=== PATIENT | female | born 1925 | race Caucasian/White ===

== ENCOUNTER → 2016-12-05 | Outpatient (CLI) | payer BC ==
[~2016-12-05] MED LIST: ACET-1311 PO; AMLO-110 PO; BENZ10LO2 PO; CALC500C3 PO; CALC500C70 PO; CARV12.52 PO; CHOL100010 PO; CLOP1TAB15 PO; DOCU100C PO; FLUT0.15 NAE; GLIP5TAB11 PO; HYDCR1CL TOP; LEVE500T13 PO; LOPE2TAB PO; MAGNSUS5 PO; MULT60CA PO; NYSCR30 EXT; PANT40TA PO; POLY1POW2 PO; POLYSOL4 OP; SENN-104 PO; [UNRECOGNIZED DRUG - CODE] PO
--- NOTE | 2016-12-08 12:20 | CODING QUERY NO DIAGNOSIS ---
: 1925 TREATMENT RENDERED WITHOUT A DIAGNOSIS To promote full compliance with coding requirements relating to patient care, physician participation is requested in all cases of accounts receivable accountant uncertainty. Please assist us with providing a diagnosis/symptom for the test(s) below: A diagnosis/symptom was not documented on your Order. A valid diagnosis/symptom is required to bill all insurances. Please remember that we are unable to code a diagnosis of rule out, probable, possible, questionable, or suspected. Tests that require a diagnosis: DOS: 12/05/16 * Influenza Virus A or B Antigen DIAGNOSIS: Provider Signature: Date: Thank you [facility] Once completed, please kindly fax back to [phone] For questions please call [phone]
== END | disposition home or self-care (01) ==
LOC: C.LABSPEC 16:41
PROVIDERS: ATTEND Internal Medicine
DX: J09.X2 Influenza due to identified novel influenza A virus with other respiratory manifestations (principal)

== ENCOUNTER → 2017-04-22 | Outpatient (CLI) | payer BC ==
[2017-04-22 10:25] LABS: BLOOD UREA NITROGEN 29 mg/dl (7-18); GLUCOSE 234 mg/dl (70-99)
[2017-04-22 10:26] LABS: BUN/CREATININE RATIO 19.2 (10-20); CALCIUM 8.3 mg/dl (8.5-10.1); CARBON DIOXIDE 27 mmol/L (21-32); CHLORIDE 108 mmol/L (98-107); POTASSIUM 4.2 mmol/L (3.5-5.1); SODIUM 143 mmol/L (136-145)
--- NOTE | 2017-06-12 07:01 | CODING QUERY NO DIAGNOSIS ---
: 1925 TREATMENT RENDERED WITHOUT A DIAGNOSIS To promote full compliance with coding requirements relating to patient care, physician participation is requested in all cases of certified medical records coder uncertainty. Please assist us with providing a diagnosis/symptom for the test(s) below: A diagnosis/symptom was not documented on your Order. A valid diagnosis/symptom is required to bill all insurances. Please remember that we are unable to code a diagnosis of rule out, probable, possible, questionable, or suspected. Tests that require a diagnosis: DOS: 04/22/17 * PARTIAL RENAL PROFILE DIAGNOSIS: Provider Signature: Date: Thank you [facility] Once completed, please kindly fax back to [phone] For questions please call [phone]
== END | disposition home or self-care (01) ==
LOC: C.LABSPEC 09:13
PROVIDERS: ATTEND Internal Medicine
DX: N18.9 Chronic kidney disease, unspecified (principal)

== ENCOUNTER → 2017-05-20 | Outpatient (CLI) | payer BC ==
[~2017-05-20] MED LIST changes: +BENZ100C84 PO; +CARV6.252 PO; +CHOL1000 PO; +DEXT30LI PO; +FLVHFA110 INH; +FURO-85 PO; +GLIP-197 PO; +HYDR2.5L TOP; +LOPE1CAP6 PO; +MAG 64 PO; +MOML PO; +MONT1TAB5 PO; +NAPR1TAB9 PO; +NEOM-25 EXT; +NYSTCRE11 EXT; +OMEP20CA9 PO; +OYST500T12 PO; +POLY1SOL6 OPB; +POLY335019 PO; +POTA10CA28 PO; +PROCTO EXT; +PSEU60TA80 PO; +PSYLPOW6 PO; +SENN8.6T96 PO; +VNTHFA/IN INH; +[UNRECOGNIZED DRUG - CODE] PO
[2017-05-20 09:17] LABS: CALCIUM 8.6 mg/dl (8.5-10.1)
[2017-05-20 09:18] LABS: BLOOD UREA NITROGEN 27 mg/dl (7-18); BUN/CREATININE RATIO 18.2 (10-20); CARBON DIOXIDE 28 mmol/L (21-32); CHLORIDE 106 mmol/L (98-107); GLUCOSE 78 mg/dl (70-99); POTASSIUM 4.6 mmol/L (3.5-5.1); SODIUM 141 mmol/L (136-145)
== END | disposition home or self-care (01) ==
LOC: C.LABSPEC 07:36
PROVIDERS: ATTEND Internal Medicine
DX: I10 Essential (primary) hypertension (principal)